=== PATIENT | male | born 1965 | race Caucasian/White ===

== ENCOUNTER 2017-10-12 17:15 | Emergency (ER) | payer MEDICAID, SELFPAY ==
[2017-10-12 17:19] VITALS: BP 159/96; PULSE 70; RESP 18; TEMP 36.7; O2SAT 96
--- NOTE | 2017-10-12 18:06 | ED.GENADUL_ITS ---
Disposition Clinical Impression: Foreign body, eye Disposition: HOME Condition: Fair Instructions: Eye Foreign Body (ED) Additional Instructions: Apply 1 cm of erythromycin ophthalmic ointment to your left eye 4 times daily. Please call [facility] tomorrow morning, number listed below. You will need removal of your rust ring as discussed. If you develop visual change, increased pain, fever/chills or other new/worsening symptoms please seek care urgently once again. Referrals: [facility] [Outside] Medical Decision Making - Medical Decision Making Patient presents with Chief complaint foreign body to the left eye. Eye is injected. Foreign body is visualized on exam. No pain on movement of the eye. Tetracaine drops were instilled and pain instantly resolved. Nursing staff did assess visual acuity and found to be equal to that of the contralateral side. After anesthetizing the eye, I was able to loosen and remove the piece of metal with a Q-tip and flushing of the eye with basic salt solution. The eye was then instilled with fluorescein dye. I was examined under slit lamp. Rust ring is visualized and the metal had been. I am unable to find. I discussed these findings with the patient. Advised he will need prompt removal of rust ring. I have asked him to contact ophthalmology tomorrow. Their contact information will be given. I have also asked her palliative care specialist to help facilitate follow-up. Patient will be started on erythromycin ophthalmic ointment. We discussed new/worsening symptoms and when to seek care urgently once again. All his questions and concerns were addressed and he is in agreement with this plan. History of Present Illness - General Chief complaint: EyeProblem Stated complaint: OPTICAL Time Seen by Provider: 10/12/17 17:17 Source: patient, RN notes reviewed Mode of arrival: ambulatory Limitations: no limitations - History of Present Illness Initial comments: Patient is a 52-year-old male presenting today with chief complaint of left eye pain. 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 States that he did not seem to get a foreign body in his eye while working the metal. However, I will several hours later he suddenly had a foreign body sensation. Does not believe that he was doing anything that would have exposed to another foreign body. Feels that this is a piece of metal. Does state that he was rubbing his eye the time the pain began. Since that time he has had tearing, injection and 40 body sensation. He reports the last tetanus was in the past 5 years. He denies any visual changes aside from the tearing. He is able to clear these tears and have good visualization. - Related Data Unknown [No Known Home Meds] 10/12/17 Allergies Allergy/AdvReac Type Severity Reaction Status Date / Time No Known Allergies Allergy Unverified 10/12/17 17:22 Review of Systems Constitutional: no symptoms reported Eyes: as per HPI Respiratory: no symptoms reported Skin: denies: rash, lesions Neurological: denies: headache Past Medical History - Past Medical History Medical history: no medical history Surgical history: non-contributory General Exam - General Limitations: no limitations General appearance: alert, in no apparent distress - Head Head exam: Present: atraumatic - Eye Eye exam: Present: PERRL, EOMI, conjunctival injection. Absent: normal apperance (Left eye is injected and tearing. Pupils are equal round and reactive. There is a small dark and foreign body noted at the 9 o'clock position off of the pupil over the iris.), scleral icterus, nystagmus, periorbital swelling, periorbital tenderness Pupils: Present: normal accommodation - Respiratory Respiratory exam: Absent: respiratory distress - Neurological Exam Neurological exam: Present: alert, normal gait - Psychiatric Psychiatric exam: Present: normal affect, normal mood - Skin Skin exam: Present: warm, dry, intact, normal color Course Vital Signs - 24 hr 10/12/17 17:19 Temperature 36.7 C Pulse 70 Respiratory 18 Rate Blood Pressure 159/96 Pulse Oximetry 96
[2017-10-12] MEDS: Erythromycin Ophth Oint 3.5 GM TUBE 1 GM OS (18:11)
[2017-10-12] MEDS: Balanced Salt Solution 15 ML BTL (18:11)
--- NOTE | 2017-10-13 12:53 | PDOC.ERCMPRO ---
Care Management Progress Note 10/13-Heather MOORE requested assistance with a [facility] f/u tomorrow for gordo lombardo. Referral faxed to [facility] today.
== END 2017-10-12 18:05 | disposition home or self-care (01) ==
PROVIDERS: Emergency Provider Physician Assistant; PCP Nurse Practitioner Family
DX: T15.82XA Foreign body in other and multiple parts of external eye, left eye, initial encounter (principal); W31.1XXA Contact with metalworking machines, initial encounter
CPT/HCPCS: 99283

== ENCOUNTER 2018-04-06 10:06 | Emergency (ER) | payer SELFPAY ==
--- NOTE | 2018-04-06 10:07 | W.ED.GENAD ---
Discharge Plan Disposition Patient Disposition: HOME Condition: Stable Discharge Details Chief Complaint: Nk/Back Pain Clinical Impression: Hypertension, Neck pain Primary Care Provider: Destiny Ta ED Provider: Vishnu Jaimes Home Meds and New Rx's Prescriptions: New cyclobenzaprine 10 mg tablet 10 mg PO TID PRN (Reason: muscle spasm) Qty: 30 RF: 0 Discharge Instructions Instructions: Neck Pain (ED) Additional Instructions: Your blood work and cat scan did not show any concerning findings. This is likely a muscle strain I placed you on the follow up list to get set up with a primary care provider You need to see a primary care provider and have your blood pressure rechecked For pain you can take 1000mg tylenol and 600mg ibuprofen every 6 hours for pain as needed If you have fevers, persistent vomit, inability to swallow liquids or difficulty breathing return to the emergency department Medical Decision Making 52 yo male who denies chronic medical problems though hasn't seen a medical probider for yearly physical in over 10 years, denies smoking/alcohol/drug use, who comes in with right sided posterior neck pain and throat pain while at work yesterday. 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 He denies fevers, headache, n/v. He is speaking in full sentences in no respiratory dsitress with midline uvula with no focal neuro deficits, PERRL, eomi and CN II-XII intact. Unlikely meningitis given lack of headache and fevers. Has tenderness over right posterior trapezius. I suspect muscle strain vs spasm but he is also complaining of throat pain and had tooth extraction last week, will image to eval for possible abscess. He has no findings to suggest arterial dissection pt's labs unremarkable and ct shows no acute pathology. Has had some pain relief with muscle relaxer and still has no meningismus and normal oropharynx exam without drooling or stridor. I discussed risk and benefits of LP for meningitis which I feel is unlikely and he declines having this done at this time. 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 Date/Time Provider Initiated Documentation: 04/06/18 10:07. Limitations to Documentation: no limitations. Information obtained by: patient. History of Present Illness 52 year old M presents to the emergency department with the chief complaint of right sided neck pain, described as moderate, with intensity rated at 6. Quality is described as aching, and is localized to the neck. Patient reports no radiation. Patient started experiencing this day(s) (1) and it has been constant. Rest improves symptom(s), Movement worsens symptoms . Patient notes no other symptoms.. Patient did receive the following treatments prior to arrival, Aspirin Related Data Home Medications Medication Instructions Recorded Confirmed cyclobenzaprine 10 mg PO TID PRN #30 tab 04/06/18 Previous Rx's Medication Instructions Recorded cyclobenzaprine 10 mg PO TID PRN #30 tab 04/06/18 Allergies Allergy/AdvReac Type Severity Reaction Status Date / Time No Known Allergies Allergy Unverified 04/06/18 10:18 Review of Systems Review of Systems All systems reviewed & are unremarkable except as noted in HPI and below Constitutional Denies chills, Denies fever(s) and Denies weakness Cardiovascular Denies chest pain and Denies dyspnea Respiratory Denies cough and Denies dyspnea Gastrointestinal Denies abdominal pain, Denies nausea and Denies vomiting Musculoskeletal Denies joint swelling Neurologic Denies weakness [facility] Social History Smoking and Tabacco status: Never Exam Const General: no acute distress Orientation: alert HENMT Head: normal to inspection Ears: external ears normal General nose exam: external nose normal Mouth: moist mucous membranes Eyes General: appearance normal, both eyes and all related structures Neck Neck: normal visual inspection Resp Effort & Inspection: normal respiratory effort and able to speak in complete sentences Cardio Rate: regular rate Skin General skin exam: no rashes or lesions noted Neuro General: alert and oriented x3 Extrem General: normal to inspection Psych Mental Status: mental status grossly normal
[2018-04-06 10:16] VITALS: BP 177/96; PULSE 88; RESP 16; TEMP 37; O2SAT 97
--- NOTE | 2018-04-06 10:29 | ED.GENADUL_ITS ---
Discharge Plan Disposition Patient Disposition: HOME Condition: Stable Discharge Details Chief Complaint: Nk/Back Pain Clinical Impression: Hypertension, Neck pain Primary Care Provider: Destiny Ta ED Provider: Vishnu Jaimes Home Meds and New Rx's Prescriptions: New cyclobenzaprine 10 mg tablet 10 mg PO TID PRN (Reason: muscle spasm) Qty: 30 RF: 0 Discharge Instructions Instructions: Neck Pain (ED) Additional Instructions: Your blood work and cat scan did not show any concerning findings. This is likely a muscle strain I placed you on the follow up list to get set up with a primary care provider You need to see a primary care provider and have your blood pressure rechecked For pain you can take 1000mg tylenol and 600mg ibuprofen every 6 hours for pain as needed If you have fevers, persistent vomit, inability to swallow liquids or difficulty breathing return to the emergency department Medical Decision Making 52 yo male who denies chronic medical problems though hasn't seen a medical probider for yearly physical in over 10 years, denies smoking/alcohol/drug use, who comes in with right sided posterior neck pain and throat pain while at work yesterday. 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 He denies fevers, headache, n/v. He is speaking in full sentences in no respiratory dsitress with midline uvula with no focal neuro deficits, PERRL, eomi and CN II-XII intact. Unlikely meningitis given lack of headache and fevers. Has tenderness over right posterior trapezius. I suspect muscle strain vs spasm but he is also complaining of throat pain and had tooth extraction last week, will image to eval for possible abscess. He has no findings to suggest arterial dissection pt's labs unremarkable and ct shows no acute pathology. Has had some pain relief with muscle relaxer and still has no meningismus and normal oropharynx exam without drooling or stridor. I discussed risk and benefits of LP for meningitis which I feel is unlikely and he declines having this done at this time. 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 Date/Time Provider Initiated Documentation: 04/06/18 10:07 . Limitations to Documentation: no limitations . Information obtained by: patient . History of Present Illness 52 year old M presents to the emergency department with the chief complaint of right sided neck pain, described as moderate, with intensity rated at 6. Quality is described as aching, and is localized to the neck. Patient reports no radiation. Patient started experiencing this day(s) (1) and it has been constant. Rest improves symptom(s), Movement worsens symptoms . Patient no britt no other symptoms.. Patient did receive the following treatments prior to arrival, Aspirin Related Data Home Medications Medication Instructions Recorded Confirmed cyclobenzaprine 10 mg PO TID PRN #30 tab 04/06/18 Previous Rx's Medication Instructions Recorded cyclobenzaprine 10 mg PO TID PRN #30 tab 04/06/18 Allergies Allergy/AdvReac Type Severity Reaction Status Date / Time No Known Allergies Allergy Unverified 04/06/18 10:18 Review of Systems Review of Systems All systems reviewed & are unremarkable except as noted in HPI and below Constitutional Denies chills, Denies fever(s) and Denies weakness Cardiovascular Denies chest pain and Denies dyspnea Respiratory Denies cough and Denies dyspnea Gastrointestinal Denies abdominal pain, Denies nausea and Denies vomiting Musculoskeletal Denies joint swelling Neurologic Denies weakness [facility] Social History Smoking and Tabacco status: Never Exam Const General: no acute distress Orientation: alert [facility] Head: normal to inspection Ears: external ears normal General nose exam: external nose normal Mouth: moist mucous membranes Eyes General: appearance normal, both eyes and all related structures Neck Neck: normal visual inspection Resp Effort & Inspection: normal respiratory effort and able to speak in complete sentences Cardio Rate: regular rate Skin General skin exam: no rashes or lesions noted Neuro General: alert and oriented x3 Extrem General: normal to inspection Psych Mental Status: mental status grossly normal
[2018-04-06] MEDS: Cyclobenzaprine 10 MG TAB PO (10:35)
[2018-04-06] MEDS: Ketorolac 15 MG/ML VIAL IVP (10:35)
[2018-04-06] MEDS: Normal Saline 1,000 ML 1000 ML IV (10:35)
[2018-04-06 10:38] LABS: Abs Immature Grans 0.01 k/cumm (0.0-0.09); Absolute Basophil Count 0.02 k/cumm (0.0-0.2); Absolute Eosinophil Count 0.07 k/cumm (0.0-0.7); Absolute Lymphocyte Count 1.13 k/cumm (1.2-3.4); Absolute Monocyte Count 0.59 k/cumm (0.11-0.7); Basophils % 0.2; Eosinophils % 0.6; HCT 45.1 % (40.0-50.0); HGB 15.9 g/dL (13.5-17.5); Immature Grans % 0.1; Lymphocytes % 10.2; Mean Corp. HGB Concentration 35.3 g/dL (32.0-36.0); Mean Corpuscular Hemoglobin 31.6 pg (27.0-33.0); Mean Corpuscular Volume 89.7 fL (80-95); Mean Platelet Volume 9.2 fL (8.0-11.0); Monocytes % 5.3; Neutrophils % 83.6; Platelet Count 225 x1000/uL (130-400); RBC 5.03 m/cumm (4.50-6.00); RBC Distribution Width 12.6 % (11.8-14.1); White Blood Cell Count 11.04 k/cumm (4.4-10.8)
[2018-04-06 10:40] LABS: Absolute Neutrophil Count 9.23 k/cumm (1.2-6.7)
[2018-04-06 10:53] LABS: ALT 26 U/L (12-78); AST 17 U/L (15-37); Albumin 4.4 g/dL (3.4-5.0); Alkaline Phosphatase 59 U/L (46-116); Anion Gap 7.6 mmol/L (3-11); BUN 12 mg/dL (7-18); Bilirubin, Total 0.6 mg/dL (0.2-1.0); CO2 31.4 mmol/L (21.0-32.0); Calcium 9.4 mg/dL (8.5-10.1); Chloride 100 mmol/L (98-107); Glucose 123 mg/dL (70-100); Magnesium 1.9 mg/dL (1.8-2.4); Potassium 4.3 mmol/L (3.5-5.1); Sodium 139 mmol/L (136-145); Total Protein 8.9 g/dL (6.4-8.2)
[2018-04-06 10:57] LABS: INR 1.1 (0.9-1.1); Prothrombin Time 10.6 sec (9.3-11.0)
[2018-04-06] MEDS: Omnipaque 350 MG/ML 100 ML BTL IJ (11:09)
--- NOTE | 2018-04-06 11:10 | DI.CT_ITS ---
SYMPTOMS/DIAGNOSIS: RT SIDED NECK/THROAT PAIN, DIFFICULTY SWALLOWING NECK CT: CT examination of the cervical region was performed with intravenous infusion of 100 cc's of Omnipaque 350. Images obtained through the lung apices show no focal abnormality. The visualized brain appears intact. No cervical mass or adenopathy. The vascular structures appear intact. Note is made of apparent localized symmetrical narrowing of the supraglottic larynx raising the possibility of supraglottitis. There is no evidence retropharyngeal abscess or abscess elsewhere in the neck. The epiglottis and aryepiglottic folds appear intact. CONCLUSION: Question supraglottitis. Please correlate clinically.
[2018-04-06 11:45] VITALS: BP 143/89; PULSE 77; RESP 16; TEMP 37; O2SAT 95
--- NOTE | 2018-04-07 08:44 | PDOC.ERCMPRO ---
Care Management Progress Note 04/07-Dr. Jaimes requested assistance with a PCP (Arturo button reclaimer) within two weeks for neck pain/hypertension. Referral faxed to [facility] this am.
--- NOTE | 2018-04-07 08:45 | CMPROGNOTE_ITS ---
Care Management Progress Note 04/07-Dr. Jaimes requested assistance with a PCP (Arturo ironer hand) within two weeks for neck pain/hypertension. Referral faxed to [facility] this am.
== END 2018-04-06 11:50 | disposition home or self-care (01) ==
PROVIDERS: Emergency Provider Emergency Medicine; PCP Nurse Practitioner Family
DX: I10 Essential (primary) hypertension (principal); M54.2 Cervicalgia
CPT/HCPCS: 36415; 70491; 80053; 96361; 96374; 99285; 83735; 85025; 85610; 85730; 99284; J1885; J3490

== ENCOUNTER 2019-01-19 10:29 | Emergency (ER) | payer MEDICAID, SELFPAY ==
[2019-01-19 10:34] VITALS: BP 157/86; PULSE 84; RESP 16; TEMP 36.6; O2SAT 98
--- NOTE | 2019-01-19 11:13 | ED.GENADUL_ITS ---
Discharge Plan Disposition Patient Disposition: HOME Discharge Details Chief Complaint: EyeProblem Clinical Impression: Corneal rust ring of right eye Primary Care Provider: Unknown,Unknown ED Provider: Fish Dela Cruz Home Meds and New Rx's Prescriptions: New erythromycin 5 mg/gram (0.5 %) ointment 0.5 inch OP QID Qty: 3.5 RF: 0 No Action acetaminophen 500 mg Tablet 1,000 mg PO Q4H PRNRF: 0 Discharge Instructions Instructions: Eye Foreign Body (ED) Additional Instructions: Apply erythromycin ointment to eye: 0.5 inch 4 times a day for the next 1 week. Discussed ongoing dosing with your eyeglass fitter. Please follow-up with [facility] care. Call for an appointment to be seen as soon as possible in follow-up. Please take ibuprofen over the counter. Take 600mg by mouth every 6 hours as needed for pain. Please contact your primary care physician to arrange follow-up. Return to the ER for any worsening or new concerning symptoms. Referrals: [facility] [Outside] Discharge Data Discharge Date/Time-TO BE ENTERED AT DEPARTURE: 01/19/19 12:08 Medical Decision Making 53-year-old male presents with sensation of foreign body in his right eye. Tetracaine drops applied and discomfort significantly improved. I examined under Montoya lamp with fluorescein stain and then with slit lamp and identified metallic fb tiny rust ring and cornea at 11:00. Fb completely removed carefully with 27g needle tip. Patient started on prophylactic erythromycin ointment and advised to follow-up with eye assurance services manager health care on Tuesday. Usual and customary discharge instructions were provided. HPI General Mode of arrival: ambulatory . Date/Time Provider Initiated Documentation: 01/19/19 10:55 . Limitations to Documentation: no limitations . Information obtained by: patient . HPI Narrative: 53-year-old male presents with chief complaint of eye discomfort. Patient notes right eye inflammation that started 2 days ago and has persisted. Feels like foreign body in the eye. Symptoms are moderate. No associated visual change. 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 He does not recall any trauma. No welding. No contacts. Related Data Home Medications Medication Instructions Recorded Confirmed acetaminophen 1,000 mg PO Q4H PRN 01/19/19 01/19/19 erythromycin 0.5 inch OP QID #3.5 gm 01/19/19 Previous Rx's Medication Instructions Recorded erythromycin 0.5 inch OP QID #3.5 gm 01/19/19 Allergies Allergy/AdvReac Type Severity Reaction Status Date / Time No Known Allergies Allergy Unverified 01/19/19 10:35 General Stated Complaint: EyeProblem PETRA: 4 Review of Systems Constitutional Constitutional: Denies fever(s) Eyes Eyes: Reports as per HPI PFSH Social History Smoking/Tobacco Use Status: Never Alcohol Intake: never Drug use: Never Substance use type: does not use Do you feel safe at home: Yes Do you feel safe in your relationship?: Yes Exam Const General: cooperative and no acute distress HENMT Head: normocephalic and atraumatic Mouth: moist mucous membranes Eyes Alignment and Position: alignment normal and position normal Conjunctivae: conjunctival abnormality right conjunctival injection (mild) Sclera: normal sclerae Cornea: corneas abnormal on the right (metallic fb with rust ring 11:00) fluorescein used Pupils: PERRL and accommodation normal EOM: EOM intact bilaterally Course Vital Signs Vital signs: Vital Signs Temperature 36.6 C 01/19/19 10:34 Pulse 84 01/19/19 10:34 Respiratory Rate 16 01/19/19 10:34 Blood Pressure 157/86 H 01/19/19 10:34 Pulse Oximetry 98 01/19/19 10:34 Temperature 36.6 C 01/19/19 10:34 Temperature Source Skin 01/19/19 10:34 Pulse 84 01/19/19 10:34 Respiratory Rate 16 01/19/19 10:34 Respiratory Effort Non-Labored 01/19/19 10:36 Blood Pressure 157/86 H 01/19/19 10:34 Blood Pressure Position Sitting 01/19/19 10:34 Pulse Oximetry 98 01/19/19 10:34 Oxygen Delivery Method Room Air 01/19/19 10:34 Oxygen Flow Rate 0 01/19/19 10:34 Pain Level 3 01/19/19 10:34 Procedures Foreign Body Removal Time Out Performed: yes Site: right Description of foreign body: other (Tiny metallic shard) Sedation/Analgesia: none Technique: other (Removed with tip of 27-gauge needle) Confirmed by:: direct visualization Complications: none Post-procedure exam: awake, alert
[2019-01-19] MEDS: Erythromycin Ophth Oint 3.5 GM TUBE OD (12:01)
[2019-01-19] MEDS: Fluorescein STRIPS 100/BOX 1 MG (12:03)
[2019-01-19] MEDS: Tetracaine 0.5% 4 ML BTL (12:04)
[2019-01-19] MEDS: Balanced Salt Solution 15 ML BTL (12:05)
== END 2019-01-19 12:08 | disposition home or self-care (01) ==
PROVIDERS: Emergency Provider Student in an Organized Health Care Education/Training Program
DX: T15.01XA Foreign body in cornea, right eye, initial encounter (principal); X58.XXXA Exposure to other specified factors, initial encounter
CPT/HCPCS: 65222